=== PATIENT | female | born 1960 | race Caucasian/White ===

== ENCOUNTER 2017-10-22 16:35 | Outpatient (CLI) | payer BC | END 2017-10-22 16:36 | disposition home or self-care (01) | LOC: BICMAMMO 16:35 | DX: Z12.31 Encounter for screening mammogram for malignant neoplasm of breast (principal) | CPT/HCPCS: 77063; 77067; G0202 ==

== ENCOUNTER 2018-10-29 14:53 | Outpatient (CLI) | payer BC | END 2018-10-29 14:54 | disposition home or self-care (01) | LOC: BICMAMMO 14:53 | DX: Z12.31 Encounter for screening mammogram for malignant neoplasm of breast (principal); Z80.3 Family history of malignant neoplasm of breast | CPT/HCPCS: 77063; 77067 ==